=== PATIENT | female | born 1965 | race African-American/Black ===

== ENCOUNTER 2018-12-06 10:02 | Inpatient (IN) ==
[2018-12-06 10:40] LABS: Basophils # 0.1 10*3/uL (0.0-0.2); Basophils % 0.8 % (0.0-0.8); Eosinophils # 0.2 10*3/uL (0.0-0.87); Eosinophils % 2.5 % (0.00-10.9); Hematocrit 42.3 VOL% (35.7-47.0); Hemoglobin 13.9 GM/DL (12.0-16.0); Immature Granulocytes % 0.3 %; Immature Granulocytes Absolute 0.02 #; Lymphocytes # 2.2 10*3/uL (1.4-4.0); Lymphocytes % 36.3 % (21.3-54.2); Mean Corpuscular HGB Conc 32.9 GM/DL (32-36); Mean Corpuscular Volume 95.9 FL (87-102); Mean Platelet Volume 9.7 FL (9.6-12.0); Monocytes % 9.9 % (1.7-12.7); Neutrophils % 50.2 % (38.7-73.9); Platelet Count 280 T/CUMM (130-400); Red Blood Count 4.41 MC/CUMM (3.8-5.5); Red Cell Distribution Width 14.3 % (9.3-17.3)
[2018-12-06 10:52] LABS: INR 0.9; PT Patient Result 10.1 SECS; Partial Thromboplastin Time 26.6 SECS (0-40)
[2018-12-06 10:56] LABS: Calcium 8.9 MG/DL (8.5-10.1)
[2018-12-06] MEDS ORDERED: ONDANSETRON 4 MG/2 ML VIAL IV PRN (11:40)
[2018-12-06] MEDS ORDERED: NITROGLYCERIN 2% OINT 1 INCH/GM PACK TOP STA (11:42)
[2018-12-06] MEDS ORDERED: NITROGLYCERIN 2% OINT 1 INCH/GM PACK TOP ONE (11:43)
[2018-12-06] MEDS ORDERED: BENZONATATE 100 MG CAPSULE PO PRN (12:02)
[2018-12-06 13:26] LABS: Troponin I < 0.015 NG/ML (0.00-0.045)
[2018-12-06] MEDS ORDERED: hydrALAZINE 20 MG/1 ML VIAL IV PRN (13:54)
[2018-12-06] MEDS: NICOTINE 7 MG/24 HR PATCH TRANSDERM SCH (14:44)
[2018-12-06 16:27] LABS: Troponin I < 0.015 NG/ML (0.00-0.045)
[2018-12-06] MEDS: CARVEDILOL 12.5 MG TABLET PO SCH (21:44)
[2018-12-06] MEDS: MELATONIN 3 MG TABLET PO PRN (22:51)
[2018-12-07 01:01] LABS: Apearance,Urine CLEAR (Clear); Bilirubin,Urine Negative (Negative); Blood, Urine Small mg/dL (Negative); Glucose,Urine (UA) Negative (Negative); Ketones,Urine Negative (Negative); Nitrite,Urine Negative (Negative); Protein,Urine Negative; Squamous Epithelial Cell,Urine Occasional /HPF (0-10); Urine Color Colorless (Yellow); Urine Specific Gravity 1.001 (1.001-1.035); Urine Urobilinogen < 2.0 EU/DL (0.2-1.0); WBC,Urine <1 /HPF (0-6)
[2018-12-07 01:14] LABS: Barbiturates Screen,Urine Negative (Negative); Benzodiazepines Screen,Urine Negative (Negative); Cannabinoid Screen,Urine Negative (Negative); Opiate Screen,Urine Negative (Negative); Phencyclidine Screen,Urine Negative (Negative)
[2018-12-07 05:36] LABS: Basophils # 0.1 10*3/uL (0.0-0.2); Eosinophils # 0.2 10*3/uL (0.0-0.87); Eosinophils % 3.4 % (0.00-10.9); Hemoglobin 13.1 GM/DL (12.0-16.0); Immature Granulocytes % 0.3 %; Immature Granulocytes Absolute 0.02 #; Lymphocytes # 2.7 10*3/uL (1.4-4.0); Lymphocytes % 39.4 % (21.3-54.2); Mean Corpuscular HGB Conc 32.8 GM/DL (32-36); Mean Corpuscular Volume 96.4 FL (87-102); Mean Platelet Volume 9.9 FL (9.6-12.0); Monocytes % 11.7 % (1.7-12.7); Neutrophils % 44.2 % (38.7-73.9); Platelet Count 255 T/CUMM (130-400); Red Blood Count 4.15 MC/CUMM (3.8-5.5); Red Cell Distribution Width 14.3 % (9.3-17.3); White Blood Count 6.9 T/CUMM (4-12)
[2018-12-07 06:02] LABS: Calcium 8.7 MG/DL (8.5-10.1); Risk Ratio 3.53; Thyroid Stimulating Hormone 1.11 uIU/ml (0.358-3.74); VLDL CHOLESTEROL 20.8 MG/DL
[2018-12-07] MEDS: amLODIPine 10 MG TABLET PO SCH (08:41)
[2018-12-07] MEDS: LISINOPRIL 10 MG TABLET PO SCH (08:41)
[2018-12-07] MEDS: ATORVASTATIN 20 MG TABLET PO SCH (08:41)
[2018-12-07] MEDS: FUROSEMIDE 40 MG TABLET PO SCH (08:42)
[2018-12-07] MEDS: NICOTINE 7 MG/24 HR PATCH TRANSDERM SCH (08:42)
[2018-12-07] MEDS: ENOXAPARIN 40 MG/0.4 ML SYRINGE SUBCUT SCH (08:42)
[2018-12-07] MEDS: PANTOPRAZOLE 40 MG TABLET PO SCH (08:42)
[2018-12-07] MEDS: CARVEDILOL 12.5 MG TABLET PO SCH ×2 (08:42→22:22)
[2018-12-07] MEDS ORDERED: NITROGLYCERIN SL 0.4 MG TABLET SL PRN (09:37)
[2018-12-07] MEDS: ASPIRIN EC 81 MG TABLET PO SCH (10:11)
[2018-12-07] MEDS: POTASSIUM CHLORIDE 20 MEQ TABLET PO PRN ×4 (10:12→18:25)
[2018-12-07 11:47] LABS: Troponin I < 0.015 NG/ML (0.00-0.045)
[2018-12-07] MEDS: ACETAMINOPHEN 325 MG TABLET PO PRN (18:25)
[2018-12-08] MEDS: MELATONIN 3 MG TABLET PO PRN ×2 (00:04→21:39)
[2018-12-08 06:23] LABS: Basophils # 0.1 10*3/uL (0.0-0.2); Basophils % 0.8 % (0.0-0.8); Eosinophils # 0.1 10*3/uL (0.0-0.87); Eosinophils % 2.1 % (0.00-10.9); Hematocrit 42.6 VOL% (35.7-47.0); Hemoglobin 13.8 GM/DL (12.0-16.0); Immature Granulocytes % 0.3 %; Immature Granulocytes Absolute 0.02 #; Lymphocytes # 2.8 10*3/uL (1.4-4.0); Lymphocytes % 46.2 % (21.3-54.2); Mean Corpuscular HGB Conc 32.4 GM/DL (32-36); Mean Corpuscular Volume 95.9 FL (87-102); Mean Platelet Volume 10.1 FL (9.6-12.0); Monocytes % 12.5 % (1.7-12.7); Neutrophils % 38.1 % (38.7-73.9); Platelet Count 275 T/CUMM (130-400); Red Blood Count 4.44 MC/CUMM (3.8-5.5); Red Cell Distribution Width 14.3 % (9.3-17.3); White Blood Count 6.1 T/CUMM (4-12)
[2018-12-08 06:44] LABS: Atypical Lymphocytes Few; Eosinophils 4 % (0-10); Hypochromasia 1+; Lymphocytes 44 % (20-55); Platelet Estimate Adequate; Segmented Neutrophils 43 % (50-85); Total Cells Counted 100
[2018-12-08 06:52] LABS: Calcium 9.1 MG/DL (8.5-10.1); Osmolality,Calculated 280.1 MOS/KG (273-304)
[2018-12-08] MEDS: ASPIRIN EC 81 MG TABLET PO SCH (08:44)
[2018-12-08] MEDS: LISINOPRIL 10 MG TABLET PO SCH (08:44)
[2018-12-08] MEDS: CARVEDILOL 12.5 MG TABLET PO SCH ×2 (08:44→21:40)
[2018-12-08] MEDS: FUROSEMIDE 40 MG TABLET PO SCH (08:44)
[2018-12-08] MEDS: amLODIPine 10 MG TABLET PO SCH (08:45)
[2018-12-08] MEDS: ATORVASTATIN 20 MG TABLET PO SCH (08:45)
[2018-12-08] MEDS: ENOXAPARIN 40 MG/0.4 ML SYRINGE SUBCUT SCH (08:45)
[2018-12-08] MEDS: PANTOPRAZOLE 40 MG TABLET PO SCH (08:45)
[2018-12-08] MEDS: NICOTINE 7 MG/24 HR PATCH TRANSDERM SCH (08:46)
[2018-12-08] MEDS ORDERED: LISINOPRIL 10 MG TABLET PO SCH (08:49)
[2018-12-08] MEDS: POTASSIUM CHLORIDE 20 MEQ TABLET PO PRN ×3 (11:07→15:17)
[2018-12-08] MEDS ORDERED: ZALEPLON 5 MG CAPSULE PO PRN (16:18)
[2018-12-08] MEDS ORDERED: LISINOPRIL 20 MG TABLET PO SCH (16:26)
[2018-12-08] MEDS: SERTRALINE 25 MG TABLET PO SCH (16:55)
[2018-12-08] MEDS ORDERED: SERTRALINE 25 MG TABLET PO SCH (21:00)
[2018-12-08] MEDS: hydrALAZINE 25 MG TABLET PO SCH (21:40)
[2018-12-09] MEDS: POTASSIUM CHLORIDE 20 MEQ TABLET PO PRN (06:08)
[2018-12-09] MEDS: PANTOPRAZOLE 40 MG TABLET PO SCH (08:24)
[2018-12-09] MEDS: ENOXAPARIN 40 MG/0.4 ML SYRINGE SUBCUT SCH (08:24)
[2018-12-09] MEDS: FUROSEMIDE 40 MG TABLET PO SCH (08:25)
[2018-12-09] MEDS: SERTRALINE 25 MG TABLET PO SCH (08:25)
[2018-12-09] MEDS: hydrALAZINE 25 MG TABLET PO SCH (08:25)
[2018-12-09] MEDS: ASPIRIN EC 81 MG TABLET PO SCH (08:25)
[2018-12-09] MEDS: NICOTINE 7 MG/24 HR PATCH TRANSDERM SCH (08:30)
[2018-12-09] MEDS: CARVEDILOL 12.5 MG TABLET PO SCH (08:30)
[2018-12-09] MEDS: ATORVASTATIN 20 MG TABLET PO SCH (08:30)
[2018-12-09] MEDS ORDERED: SPIRONOLACTONE 25 MG TABLET PO SCH (09:00)
[2018-12-09] MEDS ORDERED: ISOSORBIDE MONONITRATE 30 MG TABLET PO SCH (09:00)
[2018-12-09 15:24] VITALS: BP 154/82
[2018-12-09] MEDS: ACETAMINOPHEN 325 MG TABLET PO PRN (15:36)
== END 2018-12-09 17:05 | disposition home or self-care (01) | DRG 880 ==
LOC: N.EDINP 10:02 → N.ED 10:02 → N.5E 12:11
PROVIDERS: ADMIT Internal Medicine; ATTEND Internal Medicine